=== PATIENT | female | born 1970 | race Caucasian/White ===

== ENCOUNTER 2019-07-03 07:14 | Emergency (ER) | payer BC ==
[~2019-07-03] VITALS: Ht 170.2 cm; Wt 50.8 kg
[2019-07-03 07:14] VITALS: BP_SYST 160
[2019-07-03] MEDS ORDERED: KETOROLAC TROMETHAMINE 30 MG VIAL IM ONE (08:00)
[2019-07-03 09:01] VITALS: BP_SYST 155
== END 2019-07-03 09:01 | disposition home or self-care (01) ==
LOC: SED 07:14
DX: S96.912A Strain of unspecified muscle and tendon at ankle and foot level, left foot, initial encounter (principal); W01.0XXA Fall on same level from slipping, tripping and stumbling without subsequent striking against object, initial encounter; Y93.89 Activity, other specified; Y92.091 Bathroom in other non-institutional residence as the place of occurrence of the external cause; Y99.8 Other external cause status
CPT/HCPCS: 29515; 73610; 96372; 99283; J1885

== ENCOUNTER 2019-09-30 12:14 | Emergency (ER) | payer BC ==
[~2019-09-30] VITALS: Ht 170.2 cm; Wt 50.8 kg
[2019-09-30 12:15] VITALS: BP_SYST 160
--- NOTE | 2019-09-30 12:15 | NUR ---
BROUGHT IN BY S AMBULANCE TO ER [facility], TRIAGED, REPORT GIVEN TO TROY Buitrago
--- NOTE | 2019-09-30 12:20 | NUR ---
Patient BIB BLS to ER C/O head injury. Patient A&Ox4, skin pink & warm, afebrile, right occipital bump, pain 12/09, denies N/V/D. Patient states she was seen at ER earlier today for fall & released. PT states she had another slip and fall, hit back of head on concrete, denies K.O., Pt states she has shakiness now and dizziness. Pt states alcohol use today, denies drugs.
--- NOTE | 2019-09-30 12:22 | NUR ---
DR SOTOMAYOR AT BEDSIDE FOR EVALUATION
--- NOTE | 2019-09-30 12:44 | NUR ---
TAKEN TO RADIOLOGY VIA WHEELCHAIR.
--- NOTE | 2019-09-30 13:01 | NUR ---
BROUGHT BACK TO BED #1 FROM RADIOLOGY, NOTIFIED BY [employer] RAIL MAINTENANCE WORKER OF POSSIBLE BRAIN BLEED.
--- NOTE | 2019-09-30 13:05 | NUR ---
DR CORDERO TO ER SPEAKING WITH DR SOTOMAYOR RE; CT SCAN RESULTS
--- NOTE | 2019-09-30 13:05 | NUR ---
Urine specimen collected and sent to Lab.
--- NOTE | 2019-09-30 13:17 | NUR ---
SPOKE WITH SPOUSE MITZY JARVIS, EXPLAINED SITUATION TO MITZY, PT GAVE PERMISSION. PER SPOUSE, PT IS AN ALCOHOLIC AND DRINKS FROM SUNRISE TO SUNSET, WANTS LIVER CHECKED.
[2019-09-30 13:36] LABS: BASOPHILS % (AUTO) 0.3 % (0.0-2.0); EOSINOPHILS % (AUTO) 0.1 % (0.0-4.0); HEMATOCRIT 40.7 % (36-48); HEMOGLOBIN 13.7 g/dL (12.0-16.0); LYMPHOCYTES # (AUTO) 0.9 K/uL (1.0-5.5); LYMPHOCYTES % (AUTO) 7.9 % (20.5-51.5); MEAN CORPUSCULAR HEMOGLOBIN 35 pg (27-31); MEAN CORPUSCULAR HGB CONC 34 % (32-36); MEAN CORPUSCULAR VOLUME 103 fL (79.0-98.0); MONOCYTES % (AUTO) 9.3 % (1.7-9.3); NEUTROPHILS # (AUTO) 9.2 K/uL (1.8-7.7); NEUTROPHILS % (AUTO) 82.4 % (40.0-70.0); PLATELET COUNT (AUTO) 157 K/uL (130-430); RED BLOOD CELL COUNT(AUTO) 3.94 MIL/uL (4.2-6.2); RED CELL DISTRIBUTION WIDTH 13.8 % (9.0-15.0); WHITE BLOOD COUNT (AUTO) 11.2 K/uL (4.8-10.8)
--- NOTE | 2019-09-30 13:45 | NUR ---
zaid waters still in the process of working with one of the doctors. spoke to syed
[2019-09-30 13:50] LABS: INR 1.1 (0.8-1.2); PROTHROMBIN TIME 11.5 SECS (9.5-12.5)
[2019-09-30 13:51] LABS: BARBITURATE, URINE NEGATIVE (NEG <=200); BENZODIAZEPINE, URINE NEGATIVE (NEG <=150); CANNABINOID, URINE NEGATIVE (NEG <=50); COCAINE, URINE NEGATIVE (NEG <=150); METHAMPHETAMINES SCREEN,URINE NEGATIVE (NEG <=500); OPIATE, URINE NEGATIVE (NEG <=100); PHENCYCLIDINE SCREEN,URINE NEGATIVE (NEG <=25); UR TRICYCLIC ANTIDEPRESSANTS NEGATIVE (NEG <=300); URINE AMPHETAMINE NEGATIVE (NEG <=500); URINE METHADONE NEGATIVE (NEG <=200); URINE OXYCODONE SCREEN NEGATIVE (NEG <=100); URINE PROPOXYPHENE SCREEN NEGATIVE (NEG <=300)
[2019-09-30 13:53] LABS: CALCIUM 10.4 mg/dL (8.4-11.0); CREATININE 0.71 mg/dL (0.55-1.30)
[2019-09-30 13:59] LABS: ALBUMIN 4.5 g/dL (3.4-4.8); TOTAL BILIRUBIN 1.2 mg/dL (0.0-1.0)
[2019-09-30] MEDS ORDERED: NACL 0.9% 1,000 ML IV ONE (14:00)
[2019-09-30] MEDS ORDERED: niCARdipine 25 MG in D5W 240 ML IV ONE (14:00)
[2019-09-30 14:01] LABS: POTASSIUM 2.9 mmol/L (3.5-5.1)
[2019-09-30] MEDS ORDERED: LORazepam 2 MG/ML VIAL IVP ONE ×2 (14:30→17:45)
--- NOTE | 2019-09-30 14:30 | NUR ---
# 22 gauge angiocath placed to left arm. Use of asceptic technique. Opsite placed over site. Blood return noted. Blood for lab drawn from site. Flushed with 10 cc of normal saline. No evidence of infiltration noted. Patient tolerated well.
--- NOTE | 2019-09-30 14:50 | NUR ---
DR. VILLANUEVA, [facility] DOC, IS SPEAKING TO DR. SOTOMAYOR REGARDING PT.
--- NOTE | 2019-09-30 15:15 | NUR ---
MITZY JARVIS , UPDATE GIVEN VIA TELEPHONE
--- NOTE | 2019-09-30 15:19 | NUR ---
SPOKE WITH KATARZYNA AT [facility], ACCEPTING DR IS DR BERNADETTE VILLANUEVA, GOING TO ROOM 7112, REPORT NUMBER IS [phone]. KATARZYNA IS SETTING UP TRANSPORT AT THIS TIME. WILL CALL BACK WITH ETA
--- NOTE | 2019-09-30 15:25 | NUR ---
PATIENT DISLODGED RIGHT AC PIV. CONTROLLED BLEEDING.# 20 gauge angiocath placed to LEFT ARM. Use of asceptic technique. Opsite placed over site. Blood return noted. Blood for lab drawn from site. Flushed with 10 cc of normal saline. No evidence of infiltration noted. Patient tolerated well.
--- NOTE | 2019-09-30 15:38 | NUR ---
SPOKE WITH ALLIED CARE CARDIOGRAPH OPERATOR, PT IS NOT AUTHORIZED TO GO TO [facility], PT WILL BE GOING TO [facility], ACCEPTING DR IS DR LAW
--- NOTE | 2019-09-30 16:46 | NUR ---
SPOKE TO AARON, PT IS AWAITING A BED AND HAS AN AMBULANCE ON [facility]. SOON THEY GET A BED THEY WILL CALL ME BACK EITHER AARON HERSELF OR RAINER.
--- NOTE | 2019-09-30 17:19 | NUR ---
ASHUTOSH, FATHER OF PT, REQUESTED CALL IF ANY UPDATE. [phone]
--- NOTE | 2019-09-30 17:42 | NUR ---
TRANSFER INFO [facility] BED ICU [address] CHAMORRO: [place] REPORT: [phone] SPOKE TO AARON, WOODWORKER Addendum: 09/30/19 at 1745 by [facility] ETA [id number]
[2019-09-30] MEDS ORDERED: DIPHENHYDRAMINE INJ 50 MG/ML VIAL IVP ONE (17:45)
[2019-09-30] MEDS ORDERED: LORazepam 2 MG/ML VIAL ONE (17:52)
[2019-09-30] MEDS ORDERED: DIPHENHYDRAMINE INJ 50 MG/ML VIAL ONE (17:53)
--- NOTE | 2019-09-30 17:57 | NUR ---
COMPLETE LINEN CHANGE AND PERICARE ON PATIENT.
[2019-09-30 19:14] VITALS: BP_SYST 126
--- NOTE | 2019-09-30 19:17 | NUR ---
Patient to be transferred to [facility]. Is being transferred due to higher level of care. Receiving facility has accepting physician and available space. ER physician has signed transfer form. Patient or responsible alliance party has agreed to transfer and signed form. Patient belongings inventoried and will be sent with patient. Copy of nursing notes, lab reports, EKG, Physicians Orders and X-rays to be sent with patient. Report called to CHERELLE at receiving facility. Receiving physician is DR. LAW. [facility] has been called for transfer.
== END 2019-09-30 19:14 | disposition short-term general hospital (02) ==
LOC: SED 12:14
DX: I60.9 Nontraumatic subarachnoid hemorrhage, unspecified (principal); F10.239 Alcohol dependence with withdrawal, unspecified; I10 Essential (primary) hypertension; Y90.1 Blood alcohol level of 20-39 mg/100 ml; Z20.828 Contact with and (suspected) exposure to other viral communicable diseases
CPT/HCPCS: 36415; 70450; 80053; 80307; 82140; 85025; 85610; 85730; 96365; 96374; 96375; 99285; C9803; G0482; J1200; J2060; J7030; J7060; U0003